=== PATIENT | male | born 1950 ===

== ENCOUNTER → 2021-01-01 | Outpatient (REF) | payer MEDICARE, BC | LOC: M LAB REF 13:10 | PROVIDERS: ATTEND Internal Medicine Nephrology | DX: I12.9 Hypertensive chronic kidney disease with stage 1 through stage 4 chronic kidney disease, or unspecified chronic kidney disease (principal) ==

== ENCOUNTER → 2024-02-23 | Outpatient (REF) | payer MEDICARE | LOC: M LAB REF 17:27 | PROVIDERS: ATTEND Internal Medicine Nephrology | DX: E83.52 Hypercalcemia (principal) ==